=== PATIENT | male | born 1995 | race Caucasian/White ===

== ENCOUNTER 2021-10-20 14:21 | Emergency (ER) | payer OTHER ==
[~2021-10-20 14:21] MED LIST: AUGMENTIN 875-1 EACH PO
[2021-10-20 14:54] LABS: BASOPHIL 0.4 % (0-2); EOSINOPHIL 0 % (0-5); HCT 46.3 % (42.0-52.0); HGB 15.8 g/dl (13.2-18.0); LYMPHOCYTE 32.9 % (15-48); MCH 29.9 pg (25.0-31.0); MCHC 34.1 g/dL (32.0-36.0); MCV 87.7 fL (78.0-100.0); MONOCYTE 6.6 % (0-12); MPV 9.8 fL (6.0-9.5); NEUTROPHIL 59.9 % (41-80); NRBC 0; PLT 292 K/uL (150-400); RBC 5.28 M/uL (4.70-6.00); RDW 11.8 % (11.5-14.0); WBC 5.5 K/uL (4.0-10.5)
[2021-10-20 15:12] LABS: ALBUMIN 5.3 g/dL (3.4-5.0); BILIRUBIN - TOTAL 1.4 mg/dL (0.2-1.0); BUN/CREAT RATIO (CALC) 15.2 RATIO; CREATININE 0.99 mg/dL (0.67-1.17); GLOBULIN (CALCULATION) 3.6 g/dL; POTASSIUM 4.4 mmol/L (3.5-5.1); TOTAL PROTEIN 8.9 g/dL (6.4-8.2)
[2021-10-20] MEDS ORDERED: PEPCID AC20 MG PO (16:57)
[2021-10-20] MEDS ORDERED: ONDANSETRON ODT4 MG PO (16:57)
== END 2021-10-20 17:32 | disposition home or self-care (01) ==
LOC: FER 14:21
PROVIDERS: Nurse Practitioner Family
DX: R11.2 Nausea with vomiting, unspecified (principal); R19.7 Diarrhea, unspecified; F17.290 Nicotine dependence, other tobacco product, uncomplicated
CPT/HCPCS: 36415; 80053; 83690; 85025; J2405; J7030; Q9967